=== PATIENT | female | born 1960 | race American Indian/Alaskan Native ===

== ENCOUNTER 2019-04-02 12:00 | Emergency (ER) | payer MEDICAID ==
[2019-04-02 12:16] VITALS: BP 157/77
--- NOTE | 2019-04-02 12:17 | Emergency Department Report ---
ED General Adult HPI - General Stated complaint: HYPOGLYCEMIA Time Seen by Provider: 04/02/19 12:09 - History of Present Illness Initial comments: 58-year-old female presents to ED with hyperglycemia. Has history of insulin- dependent diabetes. States she took her insulin and ate a bowl of cereal for breakfast this morning. Patient had a scheduled appointment with her physician for a regular checkup. On arrival, an Accu-Chek was done in the doctor's office. Patient states the initial Accu-Chek read in the 20s, states the repeat was in the 50s, so EMS was called. EMS gave oral glucose and transported patient to the ED. States she did not feel as if her glucose was low. Fingerstick is currently 141 on ED arrival. -: This morning Consistency: now resolved Improves with: other (oral glucose) Worsens with: none Associated Symptoms: denies other symptoms Treatments Prior to Arrival: other (oral glucose) - Related Data Allergies Allergy/AdvReac Type Severity Reaction Status Date / Time Penicillins Allergy Mild Anaphylaxis Verified 04/02/19 12:16 ED Review of Systems ROS: Stated complaint: HYPOGLYCEMIA Other details as noted in HPI Comment: All other systems reviewed and negative Constitutional: denies: chills, fever Respiratory: denies: shortness of breath Cardiovascular: denies: chest pain Gastrointestinal: denies: nausea, vomiting ED Physical Exam - General Limitations: No Limitations General appearance: alert, in no apparent distress - Head Head exam: Present: atraumatic, normocephalic - Eye Eye exam: Present: normal appearance - ENT ENT exam: Present: mucous membranes moist - Neck Neck exam: Present: normal inspection - Respiratory Respiratory exam: Present: normal lung sounds bilaterally. Absent: respiratory distress - Cardiovascular Cardiovascular Exam: Present: regular rate, normal rhythm - GI/Abdominal GI/Abdominal exam: Present: soft. Absent: distended, tenderness - Extremities Exam Extremities exam: Present: normal inspection - Neurological Exam Neurological exam: Present: alert, oriented X3 - Psychiatric Psychiatric exam: Present: normal affect, normal mood - Skin Skin exam: Present: warm, dry, intact, normal color ED Course Vital Signs 04/02/19 04/02/19 04/02/19 12:10 12:16 12:21 Temperature 98.3 F 98.3 F Pulse Rate 86 89 Respiratory 17 14 14 Rate Blood Pressure 157/77 Blood Pressure 157/77 [Right] O2 Sat by Pulse 100 100 99 Oximetry ED Medical Decision Making - Lab Data Result diagrams: 04/02/19 13:12 04/02/19 13:12 Critical care attestation.: If time is entered above; I have spent that time in minutes in the direct care of this critically ill patient, excluding procedure time. ED Disposition Clinical Impression: Hypoglycemia Disposition: DC-01 TO HOME OR SELFCARE Is pt being admited?: No Condition: Stable Instructions: Diabetic Hypoglycemia (ED) Referrals: PRIMARY CARE, [Referring] - 3-5 Days Time of Disposition: 14:21
[2019-04-02 13:41] LABS: Basophils % (Auto) 0.2 % (0.0-1.8); Eosinophils % (Auto) 0.8 % (0.0-4.3); Hematocrit 32.5 % (30.3-42.9); Hemoglobin 10.7 gm/dl (10.1-14.3); Lymphocytes # (Auto) 2.4 K/mm3 (1.2-5.4); Mean Corpuscular HGB Conc 33 % (30-34); Mean Corpuscular Volume 94 fl (79-97); Monocytes # (Auto) 0.4 K/mm3 (0.0-0.8); Monocytes % (Auto) 6.5 % (0.0-7.3); Platelet Count 191 K/mm3 (140-440); Red Blood Count 3.46 M/mm3 (3.65-5.03); Red Cell Distribution Width 16.9 % (13.2-15.2)
[2019-04-02 13:57] LABS: Alanine Aminotransferase 6 units/L (7-56); Albumin 3.2 g/dL (3.9-5); BUN/Creatinine Ratio 11; Blood Urea Nitrogen 9 mg/dL (7-17); Calcium 8.4 mg/dL (8.4-10.2); Hemolysis Index 0
== END 2019-04-02 15:25 | disposition home or self-care (01) ==
LOC: ED 12:00
DX: E11.649 Type 2 diabetes mellitus with hypoglycemia without coma (principal); Z88.0 Allergy status to penicillin
CPT/HCPCS: 36415; 80053; 82962; 85025

== ENCOUNTER 2019-05-02 11:48 | Emergency (ER) | payer MEDICAID ==
[2019-05-02] MEDS ORDERED: INSULIN REGULAR, HUMAN 100 UNITS/1 ML IV ONE (12:25)
[2019-05-02] MEDS ORDERED: SODIUM CHLORIDE 0.9% 1000 ML 1,000 ML IV ONE (12:25)
--- NOTE | 2019-05-02 12:27 | Event Note ---
ED Screening Note Date of service: 05/02/19 Time: 12:20 ED Screening Note: 58 y o female with PMH of HTN and DM on metformin presents to ED for elevated BP ran out of meds states was at PCP offivce today and was sent to ED for evaluation cc of douglas no other sx FS: 336 also cc of 3 days coughing not resolved with otc meds This initial assessment/diagnostic orders/clinical plan/treatment(s) is/are subject to change based on patients health status, clinical progression and re- assessment by fellow clinical providers in the ED. Further treatment and workup at subsequent clinical providers discretion. Patient/guardian urged not to elope from the ED as their condition may be serious if not clinically assessed and managed. Initial orders include: cbc, cmp, ivf,insulin, reduce BP
[2019-05-02 13:00] LABS: Basophils % (Auto) 0.3 % (0.0-1.8); Eosinophils # (Auto) 0.1 K/mm3 (0.0-0.4); Eosinophils % (Auto) 1.6 % (0.0-4.3); Hematocrit 37.1 % (30.3-42.9); Hemoglobin 11.9 gm/dl (10.1-14.3); Lymphocytes # (Auto) 2.5 K/mm3 (1.2-5.4); Lymphocytes % (Auto) 41.4 % (13.4-35.0); Mean Corpuscular HGB Conc 32 % (30-34); Mean Corpuscular Volume 93 fl (79-97); Monocytes # (Auto) 0.5 K/mm3 (0.0-0.8); Platelet Count 163 K/mm3 (140-440); Red Blood Count 3.99 M/mm3 (3.65-5.03); Red Cell Distribution Width 16.7 % (13.2-15.2)
--- NOTE | 2019-05-02 13:12 | XRay Report ---
CHEST 2 VIEWS INDICATION / CLINICAL INFORMATION: Elevated blood pressure. COMPARISON: None available. FINDINGS: SUPPORT DEVICES: None. HEART / MEDIASTINUM: Heart is upper normal size. Pulmonary vascularity appears normal. LUNGS / PLEURA: No significant pulmonary or pleural abnormality. No pneumothorax. ADDITIONAL FINDINGS: No significant additional findings. IMPRESSION: 1. No acute findings. Signer Name: Timoteo Bah MD Signed: 05/02/2019 1:07 PM Workstation Name: [id number]
[2019-05-02 13:17] LABS: Alanine Aminotransferase 28 units/L (7-56); Albumin 3.4 g/dL (3.9-5); BUN/Creatinine Ratio 9; Blood Urea Nitrogen 8 mg/dL (7-17); Calcium 8.8 mg/dL (8.4-10.2); Hemolysis Index 64
--- NOTE | 2019-05-02 15:41 | Emergency Department Report ---
ED General Adult HPI - General Chief complaint: High BP Stated complaint: HBP/GLUCOSE Time Seen by Provider: 05/02/19 14:40 Source: patient Mode of arrival: Ambulatory Limitations: No Limitations - History of Present Illness Initial comments: 58-year-old obese female female with past history of hypertension and diabetes presents emergency department complaining of hyperglycemia and episode of hypertension. She is taking triamterene but has run out of medication for the last 2 months. She was at her primary care provider's office and office and was found to have a blood pressure 200/110 and was advised to come to the emergency department for further evaluation and treatment options. At this point in time she is asymptomatic and she denies any history of chest pain, presyncope, blurred vision, headache, nausea, vomiting. Her blood pressure normally runs around the 130/90 range when she is compliant with her medications. She also currently has a blood sugar of 339 she denies any polyuria polydipsia and nocturia. Radiation: non-radiation Consistency: constant Improves with: none Worsens with: none Associated Symptoms: denies: confusion, chest pain, cough, loss of appetite, malaise, nausea/vomiting, rash, syncope - Related Data Previous Rx's Medication Instructions Recorded Last Taken Type Benzonatate [Tessalon Perles] 100 mg PO Q8HR #30 capsule 05/02/19 Unknown Rx Triamterene/Hydrochlorothiazid 1 each PO DAILY #14 capsule 05/02/19 Unknown Rx [Triamterene-Hctz 50-25 mg Cap] Allergies Allergy/AdvReac Type Severity Reaction Status Date / Time Penicillins Allergy Mild Anaphylaxis Verified 04/02/19 12:16 iodine Allergy Unknown Verified 05/02/19 12:24 ED Review of Systems ROS: Stated complaint: HBP/GLUCOSE Other details as noted in HPI Comment: All other systems reviewed and negative ED Past Medical Hx - Past Medical History Previous Medical History?: Yes Hx Hypertension: Yes Hx Diabetes: Yes - Surgical History Past Surgical History?: No - Social History Smoking Status: Never Smoker Substance Use Type: None - Medications Home Medications: Home Medications Medication Instructions Recorded Confirmed Last Taken Type Benzonatate [Tessalon Perles] 100 mg PO Q8HR #30 capsule 05/02/19 Unknown Rx Triamterene/Hydrochlorothiazid 1 each PO DAILY #14 capsule 05/02/19 Unknown Rx [Triamterene-Hctz 50-25 mg Cap] ED Physical Exam - General Limitations: No Limitations General appearance: alert, in no apparent distress - Head Head exam: Present: atraumatic, normocephalic, normal inspection - Eye Eye exam: Present: normal appearance, PERRL, EOMI Pupils: Present: normal accommodation - ENT ENT exam: Present: mucous membranes moist - Neck Neck exam: Present: normal inspection - Respiratory Respiratory exam: Present: normal lung sounds bilaterally. Absent: respiratory distress - Cardiovascular Cardiovascular Exam: Present: regular rate, normal rhythm. Absent: systolic murmur, diastolic murmur, rubs, gallop - GI/Abdominal GI/Abdominal exam: Present: soft, normal bowel sounds - Extremities Exam Extremities exam: Present: normal inspection, other (1+ pedal edema bilaterally) - Back Exam Back exam: Present: normal inspection - Neurological Exam Neurological exam: Present: alert, oriented X3, CN II-XII intact, normal gait - Psychiatric Psychiatric exam: Present: normal affect, normal mood - Skin Skin exam: Present: warm, dry, intact, normal color. Absent: rash ED Course Vital Signs 05/02/19 05/02/19 12:20 17:00 Temperature 98.3 F Pulse Rate 104 H 96 H Respiratory 20 18 Rate Blood Pressure 181/101 Blood Pressure 178/94 [Left] O2 Sat by Pulse 95 96 Oximetry ED Medical Decision Making - Lab Data Result diagrams: 05/02/19 12:43 05/02/19 12:43 - Radiology Data [facility] [address] [place] [address] XRay Report Signed Patient: ROD ROUSSEAU MR#: [id number] 42 : 1960 Acct:[id number] Age/Sex: 58 / F ADM Date: 05/02/19 Loc: ED Attending Dr: Ordering Physician: CARLOS MANUEL HOSKINS Date of Service: 05/02/19 Procedure(s): XR chest routine 2V Accession Number(s): [id number] cc: CARLOS MANUEL HOSKINS Fluoro Time In Minutes: CHEST 2 VIEWS INDICATION / CLINICAL INFORMATION: Elevated blood pressure. COMPARISON: None available. FINDINGS: SUPPORT DEVICES: None. HEART / MEDIASTINUM: Heart is upper normal size. Pulmonary vascularity appears normal. LUNGS / PLEURA: No significant pulmonary or pleural abnormality. No pneumothorax. ADDITIONAL FINDINGS: No significant additional findings. IMPRESSION: 1. No acute findings. Signer Name: Timoteo Bah MD Signed: 05/02/2019 1:07 PM Workstation Name: [id number] Transcribed By: TYRA Dictated By: Ayaan Bah MD Electronically Authenticated By: Ayaan Bah MD Signed Date/Time: 05/02/191306 DD/ 06 TD/TT: - Medical Decision Making 58-year-old obese Afro-[place]ian female with a past medical history of chronic hypertension and diabetes presents to the emergency department complaining of high blood pressure. Patient is otherwise asymptomatic without confusion, chest pain, palpitations, headache, dizziness hematuria, or SOB. BP today is 181/101. Patient is not currently on medication but is supposed to be taking triamterene. She was just at her primary care doctor's office today for a new prescription was reportedly provided that she is unsure was actually called into the pharmacy. She states of breath. Her blood sugar was 339 the office and her initial blood pressure was 200 over 1 something she was advised to come to the ER for further evaluation and treatment options.Doubt CV, AMI, heart failure, renal infarction or failure or other end organ damage. Based on the [employer] due to a asymptomatic hypertension will a lot treatment with her primary care provider is no emergent treatment intervention is needed at this present time Disposition:Discussed with patient their elevated blood pressure and need for close outpatient management of their hypertension. Will provide a prescription for the patients previous antihypertensive medication and arrange for the patient to follow up in a primary care clinic Critical care attestation.: If time is entered above; I have spent that time in minutes in the direct care of this critically ill patient, excluding procedure time. ED Disposition Clinical Impression: HTN (hypertension), Medication refill, Hyperglycemia Disposition: DC-01 TO HOME OR SELFCARE Is pt being admited?: No Does the pt Need Aspirin: No Condition: Stable Instructions: Hypertension (ED), Diabetic Hyperglycemia (ED) Additional Instructions: Make sure you get your HgA1c checked every three months. This test monitors the severity of your diabetes. If you take oral diabetes medications, check your blood glucose two times a day. If you take insulin, check your blood glucose before meals and at bedtime. It's important not to skip any meals. Keep a log of your blood glucose results and always take it with you to your doctor appointments. Keep a list of your current medications, including injectables, and bring this medication list with you to all your doctor appointments. If you have not seen your home theater installer this year please call for an appointment. Check your feet daily for redness, sores, or openings. If you develop these signs/symptoms do not self-treat. Please, follow-up with a field assistant (foot doctor) or your primary care doctor. Low blood sugar (hypoglycemia) is defined as a blood sugar below 70mg/dl. Check your blood sugar if you feel signs/symptoms of hypoglycemia. If your blood sugar is below 70 take 15 grams of carbohydrates (ex 4 oz of apple juice, 3-4 glucose tablets, or 4-6 oz of regular soda) wait 15 minutes and repeat blood sugar to make sure it comes up above 70. If your blood sugar is above 70 and you are due for a meal, have a meal. If you are not due for a meal have a snack. This snack helps keeps your blood sugar at a safe ran00 Prescriptions: Benzonatate [Tessalon Perles] 100 mg PO Q8HR #30 capsule Triamterene/Hydrochlorothiazid [Triamterene-Hctz 50-25 mg Cap] 1 each PO DAILY #14 capsule Referrals: LIZA HALL MD [Primary Care Provider] - 3-5 Days
[2019-05-02 17:01] VITALS: BP 178/94
== END 2019-05-02 16:59 | disposition home or self-care (01) ==
LOC: ED 11:48
DX: E11.65 Type 2 diabetes mellitus with hyperglycemia (principal); I10 Essential (primary) hypertension; Z76.0 Encounter for issue of repeat prescription; Z91.041 Radiographic dye allergy status; Z88.0 Allergy status to penicillin; Z79.899 Other long term (current) drug therapy
CPT/HCPCS: 36415; 71046; 80053; 82962; 85025